=== PATIENT | female | born 1950 | race Caucasian/White ===

== ENCOUNTER 2018-05-23 00:38 | Outpatient (CLI) | payer BC, SELFPAY ==
[2018-05-23 10:37] LABS: ALT 32 U/L (12-78); AST 21 U/L (15-37); Albumin 3.9 g/dL (3.4-5.0); Alkaline Phosphatase 62 U/L (46-116); Anion Gap 10.2 mmol/L (3-11); BUN 11 mg/dL (7-18); Bilirubin, Total 1.2 mg/dL (0.2-1.0); CO2 27.8 mmol/L (21.0-32.0); CREATININE 0.96 mg/dL (0.55-1.02); Chloride 104 mmol/L (98-107); Cholesterol 176 mg/dL (50-200); Estimated GFR 58.15 (mL/min/1.73m2); Glucose 102 mg/dL (70-100); HDL Cholesterol 46 mg/dL (40-60); LDL CHOLESTEROL 113 mg/dL (<100); Potassium 4.4 mmol/L (3.5-5.1); Sodium 142 mmol/L (136-145); Triglyceride 100 mg/dL (30-150)
[2018-05-24 08:13] LABS: Hemoglobin A1C 7.1 % (4.5-6.2)
[2018-05-25 07:48] LABS: COMMENT (LAB VIEW ONLY) 150.63 mg/dL; Microalb ug/mg Crea 9.2 ug/mg Cr
== END 2018-05-23 00:58 ==
PROVIDERS: PCP Family Medicine; Visit Provider Family Medicine
DX: Z00.00 Encounter for general adult medical examination without abnormal findings (principal); E11.9 Type 2 diabetes mellitus without complications; E78.5 Hyperlipidemia, unspecified; I10 Essential (primary) hypertension
CPT/HCPCS: 80053; 80061; 83721; 82043; 82570; 83036

== ENCOUNTER 2018-10-26 09:07 | Outpatient (CLI) | payer BC, SELFPAY ==
--- NOTE | 2018-10-26 08:43 | DI.RAD_ITS ---
SYMPTOM/DIAGNOSIS: LT SHOULDER PAIN LEFT SHOULDER: There is mild spurring at the AC joint and undersurface of the acromion. The humeral head appears normally positioned. The glenohumeral joint space is well maintained. IMPRESSION: AC joint degenerative changes.
== END 2018-10-26 09:27 ==
PROVIDERS: PCP Family Medicine; Visit Provider Physician Assistant
DX: M25.512 Pain in left shoulder (principal); M19.012 Primary osteoarthritis, left shoulder
CPT/HCPCS: 73030

== ENCOUNTER 2018-11-13 01:14 | Outpatient (CLI) | payer BC, SELFPAY ==
--- NOTE | 2018-11-13 10:40 | DI.MRI_ITS ---
SYMPTOMS/DIAGNOSIS: PAIN S/P FALL 4 MONTHS AGO, DECREASED RANGE OF MOTION, ? ROTATOR CUFF TEAR MRI OF THE LEFT SHOULDER: Routine noncontrast examination was performed. There is a tear of the supraspinatus tendon, which appears near complete. The infraspinatus, teres minor and subscapularis tendons are intact. The muscles show normal signal and size. The biceps tendon has a normal appearance and location. There is blunting of the posterior inferior labrum, which may represent a small tear. The remainder of the labrum is grossly unremarkable. The articular cartilage is unremarkable. There are hypertrophic changes seen at the acromioclavicular joint. Degenerative changes are also seen at the greater tuberosity. No findings to suggest an occult fracture or avascular necrosis are identified. No focal fluid collection or soft tissue mass is seen. There is a small amount of fluid seen in the subacromial-subdeltoid bursa. IMPRESSION: 1. Tear of the supraspinatus tendon. The tear is not complete. No retraction is seen. 2. Question of a tear of the posterior labrum.
== END 2018-11-13 01:34 ==
PROVIDERS: PCP Family Medicine; Visit Provider Student in an Organized Health Care Education/Training Program
DX: M25.512 Pain in left shoulder (principal); M25.812 Other specified joint disorders, left shoulder; M75.102 Unspecified rotator cuff tear or rupture of left shoulder, not specified as traumatic
CPT/HCPCS: 73221

== ENCOUNTER 2018-11-24 11:38 | Day surgery (SDC) | payer BC, SELFPAY ==
[2018-11-24] VITALS (7 sets, daily range): BP systolic 101–155; BP diastolic 53–75; PULSE 53–62; RESP 16–24; TEMP 35.3–36.8; O2SAT 94–97
[2018-11-24] MEDS: Lactated Ringers 1,000 ML 80 ML IV ×2 (12:45→17:58)
[2018-11-24] MEDS: Bupivacaine LIPOSOME/PF 133 MG/10 ML VIAL IJ (13:58)
[2018-11-24] MEDS: Bupivacaine 0.5% Pres-Free 30 ML VIAL (13:58)
[2018-11-24] MEDS: ceFAZolin 2 GM/50 ML BAG IVPB (14:41)
--- NOTE | 2018-11-24 16:28 | W.PM.DSUDISC ---
Discharge Plan Disposition Patient Disposition: HOME Condition: Good Discharge Details Reason For Visit: (L) RTC TEAR, (L) ADHESIVE CAPSULITIS Attending Provider: Chuy Zaragoza Primary Care Provider: Yaniv Greenwood Home Meds and New Rx's Prescriptions: New acetaminophen 500 mg tablet 500 mg PO Q6H PRN (Reason: pain) Qty: 90 RF: 3 ibuprofen 600 mg tablet 600 mg PO TID PRNQty: 90 RF: 3 oxycodone 5 mg tablet 5 mg PO Q4H Qty: 12 RF: 0 Continued escitalopram oxalate 10 mg tablet 10 mg PO DAILY Qty: 30 RF: 11 pravastatin 40 mg tablet 40 mg PO DAILY Qty: 90 RF: 4 metformin 500 mg tablet 500 mg PO BID 0 Days Qty: 180 RF: 4 lorazepam 0.5 mg tablet 0.5 mg PO tid prn for anxiety 10 Days Qty: 30 RF: 0 lisinopril 20 mg tablet 20 mg PO DAILY 90 Days Qty: 90 RF: 3 Discontinued ibuprofen 800 mg Tablet 800 mg PO Q6H PRNRF: 0 acetaminophen 500 mg Capsule 1,000 mg PO Q4H PRNRF: 0 Discharge Instructions Additional Instructions: You may begin passive range of motion right away. You may start physical therapy within one week to begin passive and active assisted range ofmotion. Stand Alone Forms: Mila aguayo/RCR Referrals: Chuy Zaragoza MD [ [facility] STAFF PHYSICIAN] - Equipment/Supplies: Sling Activity:: Stay in sling except for hygiene and passive motion Remove Dressings/Wound Care:: 72 hours Shower/Bathe:: 72 hours Diet:: As Tolerated Discharge Orders Discharge Orders: Discharge Order (Routine); Ordered 11/24/18 Ordered By: Chuy Zaragoza DS: Diagnosis Discharge Diagnosis (1) Adhesive capsulitis of left shoulder: Status: Acute (2) Left rotator cuff tear: Status: Acute
[2018-11-24] MEDS: oxyCODONE 5 MG TAB PO (17:58)
--- NOTE | 2018-11-24 18:06 | NUR.NOTE ---
Nursing Note: Pt to [facility] floor at 1732 for recovery following OR with Dr. Zaragoza. VSS, pt very drowsy, c/o pain 5/10. Pt electing to remain on stretcher rather than transfer to bed, refusing gown change; pt wearing paper gown from OR. Pt medicated with oxycodone. at bedside. CMSTs good. RN will continue to monitor.
--- NOTE | 2018-11-26 07:36 | ROE_ITS ---
Date of service: 11/24/18 Time of Service: 17:36 Operative Note DATE OF PROCEDURE: 11/24/18 PRE-OP DIAGNOSIS: Left rotator cuff tear, left shoulder adhesive capsulitis POST-OP DIAGNOSIS: same PROCEDURE: Left shoulder arthroscopic rotator cuff repair, left shoulder arthroscopic capsular release SURGEON: Chuy Zaragoza MATCHING MACHINE OPERATOR: Orlando Goodman ANESTHESIA: GETA and regional ESTIMATED BLOOD LOSS: 0 PATHOLOGY: none sent COMPLICATIONS: None Patient was transported to: PACU Patient's condition: stable Indications: I have seen Priya in clinic for a painful shoulder. Pathology was confirmed based on MRI and exam findings. Nonoperative measures were exhausted but disability and pain persisted. I discussed shoulder arthroscopy and procedures. I reviewed the risks of the procedures to include, but not limited to, bleeding, infection, pain, stiffness, damage to nerves or vessels, recurrence, hardware failure, blood clot. Despite these risks, the patient elected to proceed. Findings: A diagnostic arthroscopy was performed with the following findings: - Glenohumeral Joint: No significant arthritic change. However, there was notable thickening and inflammatory change seen throughout the entirety of the glenohumeral joint lining. - Labrum: Some fraying of the anterior labrum and the superior labrum without notable displacement. - Cuff: Partial articular sided supraspinatus tearing involving approximately 10 mm of footprint - Biceps: Tearing of the biceps tendon at the level of the anchor - Subacromial: Dense inflammatory changes with the bursal side still intact but released for rotator cuff repair. No significant spurring Procedure Description: Priya was greeted in the preoperative holding area where the correct side was identified and marked. The consent was reviewed with the patient and signed. The history and physical was updated. All questions were answered. She was taken back to the PACU for administration of an intrascalene nerve block. She was then taken to the operating room. The patient was placed into the supine position on the operating room table. A general anesthetic was administered. She was then positioned in the beach chair position. All bony prominences were well padded. The head was placed in a foam head of product in a neutral position. Prophylactic antibiotics in the form of cefazolin were administered. The left arm/shoulder was then prepped with Chloraprep and draped in a standard fashion with stockinette and shoulder drape. A timeout to confirm correct identity, side and site, procedure, allergies, anesthesia, and medical concerns was performed. An assessment of motion was then performed. This demonstrated abduction of only about 70 degrees and forward flexion of 90 degrees with about 40 degrees of external rotation, passively. The arm was placed into a pneumatic kenney, SPIDER2. The shoulder arthroscopy was then performed. The glenohumeral joint was injected with 20 cc of normal saline with good flow back. A standard posterior portal was made and the joint was entered atraumatically with a blunt arthroscope. Once inside we had good visualization of the structures of the glenohumeral joint. An anterior portal was established with spinal needle localization. A 6.5 mm cannula was inserted. A probe was then used to perform a diagnostic arthroscopy. There is noted to be no significant cartilage damage of the glenoid humeral joint. There was significant synovitis and inflammatory change seen within the glenohumeral joint. The labrum was frayed anteriorly and superiorly. There were no loose bodies in the inferior pouch. The superior rotator cuff was torn over the articular side of the supraspinatus, the most anterior aspect. Approximately 10 or so millimeters was exposed. The remainder of the superior and posterior cuff was intact. The biceps tendon had fraying and tearing seen just at the anchor and lateral. The subscapularis was intact. I debrided the synovitis and inflammatory change within the shoulder using a shaver. Using electrocautery I performed a capsular release. I started superiorly over the labrum the tissue between the labrum and the superior rotator cuff. I then worked anteriorly. The entirety of the rotator interval between the superior rotator cuff and the superior portion of the subscapularis was resected into the conjoined tendon was visible in the muscle fibers of the subscapularis were visible. Working around the labrum I performed a capsular release to the inferior aspect of the glenoid. The scope was then placed in the anterior portal and the electrocautery device was placed posteriorly. This capsular release was then continued posteriorly from the superior labrum down around the posterior aspect of the shoulder with notable distraction of the capsule. Care was taken moving inferiorly and this was carefully touched with electrocautery making sure not to penetrate deep and paying attention to any shoulder motion to suggest nerve involvement. Capsule release was less aggressive at the most inferior portions. The arthroscope was then inserted into the subacromial space. The 6.5 mm cannula was placed lateral to the CA ligament. Given that there was no significant tearing of the rotator cuff I went ahead and release the CA ligament off the anterolateral corner of the acromion. A complete bursectomy is performed anteriorly, posteriorly, and laterally with electrocautery and shaver. This had excellent exposure of the rotator cuff. The bursal side rotator cuff was without any significant tearing that was appreciated. The area of corresponding articular sided tearing was identified by the soft nature of the rotator cuff. This is open more fully with a knife. The anterior aspect of the tuberosity footprint was identified. A single Mytec 4.5 mm anchor was inserted. 2 horizontal mattress sutures were then placed into the supraspinatus tendon. These were tied down in standard arthroscopic techniques with good reapproximation of the supraspinatus tendon down to the tuberosity. There is no significant anterolateral spurring. The scope equipment was removed from the shoulder. Excess fluid was evacuated. The portal sites were closed with 3-0 Monocryl. The wounds were dressed with Steri-Strips, 4 x 4's, ABDs, Medipore tape. A sling was applied. The patient tolerated the procedure well and was returned to the Same Day Surgery area in a stable condition suffering no known complication.
== END 2018-11-24 20:14 | disposition home or self-care (01) ==
LOC: SUR 16:29 → MS 18:01
PROVIDERS: PCP Family Medicine; Visit Provider Student in an Organized Health Care Education/Training Program
PROC: (CPT 29827; principal; 2018-11-24 13:15)
DX: M75.02 Adhesive capsulitis of left shoulder (principal); S46.012A Strain of muscle(s) and tendon(s) of the rotator cuff of left shoulder, initial encounter; S46.212A Strain of muscle, fascia and tendon of other parts of biceps, left arm, initial encounter; X58.XXXA Exposure to other specified factors, initial encounter; G89.18 Other acute postprocedural pain; M65.812 Other synovitis and tenosynovitis, left shoulder; I10 Essential (primary) hypertension; E11.9 Type 2 diabetes mellitus without complications
CPT/HCPCS: 29827; 29825; J0690; J1100; J1885; J2370; J2405; L3670

== ENCOUNTER 2019-05-24 01:21 | Outpatient (CLI) | payer BC, SELFPAY ==
[2019-05-24 12:08] LABS: Abs Immature Grans 0.03 k/cumm (0.0-0.09); Absolute Basophil Count 0.04 k/cumm (0.0-0.2); Absolute Eosinophil Count 0.18 k/cumm (0.0-0.7); Absolute Lymphocyte Count 1.68 k/cumm (1.2-3.4); Absolute Monocyte Count 0.49 k/cumm (0.11-0.7); Absolute Neutrophil Count 6.21 k/cumm (1.2-6.7); Basophils % 0.5; Eosinophils % 2.1; HCT 46.6 % (36.0-46.0); HGB 15.6 g/dL (12.0-15.5); Immature Grans % 0.3 %; Lymphocytes % 19.5; Mean Corp. HGB Concentration 33.5 g/dL (32.0-36.0); Mean Corpuscular Hemoglobin 29.6 pg (27.0-33.0); Mean Corpuscular Volume 88.4 fL (80-95); Monocytes % 5.7; Neutrophils % 71.9; Platelet Count 220 x1000/uL (130-400); RBC 5.27 m/cumm (4.00-5.20); RBC Distribution Width 14.1 % (11.7-14.6); White Blood Cell Count 8.63 k/cumm (4.4-10.8)
[2019-05-24 12:56] LABS: Hemoglobin A1C 7.6 % (3.8-5.6)
[2019-05-24 13:45] LABS: COMMENT (LAB VIEW ONLY) 123.21 mg/dL; Microalb ug/mg Crea 4.7 ug/mg Cr
[2019-05-24 14:02] LABS: ALT 53 U/L (14-59); AST 41 U/L (15-37); Albumin 4.2 g/dL (3.4-5.0); Alkaline Phosphatase 74 U/L (46-116); Anion Gap 11.1 mmol/L (3-11); BUN 13 mg/dL (7-18); Bilirubin, Total 1.3 mg/dL (0.2-1.0); CO2 25.9 mmol/L (21.0-32.0); Calcium 9.2 mg/dL (8.5-10.1); Calculated LDL 134 mg/dL; Chloride 104 mmol/L (98-107); Cholesterol 202 mg/dL (<200); Glucose 143 mg/dL (74-106); HDL Cholesterol 41 mg/dL (40-60); Potassium 4.5 mmol/L (3.5-5.1); Sodium 141 mmol/L (136-145); Total Protein 7.3 g/dL (6.4-8.2); Triglyceride 139 mg/dL (<150); Vitamin B12 391 pg/mL (193-986)
== END 2019-05-24 01:41 ==
PROVIDERS: PCP Family Medicine; Visit Provider Family Medicine
DX: Z00.00 Encounter for general adult medical examination without abnormal findings (principal); E11.9 Type 2 diabetes mellitus without complications; E78.5 Hyperlipidemia, unspecified; I10 Essential (primary) hypertension
CPT/HCPCS: 36415; 80053; 80061; 82043; 82570; 82607; 83036; 85025

== ENCOUNTER 2019-06-28 01:19 | Outpatient (CLI) | payer BC, SELFPAY ==
--- NOTE | 2019-06-28 15:30 | DI.MAMMO_ITS ---
EXAM: MG MAMMO SCREENING CLINICAL HISTORY: screening, Z12.31 TECHNIQUE: Mammograms were interpreted according to the usual protocol including computer analysis w [employer] CAD system, tomosynthesis and C-view imaging. COMPARISON: FINDINGS: The breasts are of moderate density with fairly symmetrical distribution of fibroglandular tissue. N o dominant mass or clumped microcalcification is identified in either breast. Current examination is compared with previous examinations including June 2017 and there has been no gross interval tai nge in appearance in comparison with previous studies. IMPRESSION: No specific evidence of malignancy at this time. Routine screening examinations are suggested at yea rly intervals due to the family history of breast carcinoma. Category 1, breast density category B
== END 2019-06-28 01:39 ==
PROVIDERS: PCP Family Medicine; Visit Provider Family Medicine
DX: Z12.31 Encounter for screening mammogram for malignant neoplasm of breast (principal)
CPT/HCPCS: 77063; 77067

== ENCOUNTER 2019-07-05 09:57 | Day surgery (SDC) | payer BC, SELFPAY ==
--- NOTE | 2019-07-05 06:59 | W.COLOREPORT ---
Date of service: 07/05/19 Time of Service: 11:42 Colonoscopy Report Date of procedure: 07/05/19 Pre-op diagnosis general: Colon Cancer Screening Post-op diagnosis procedure note: other (Polyps) Procedure: Colonoscopy with polypectomy Surgeon: Wendie Barajas Anesthesia proc note operative: other (General/ ASA 2/Tammy Bryant CRNA) Estimated blood loss (mL): 5 Pathology: other (ascending colon polyp, transverse colon polyp x2, rectal polyp) Complications: None Disposition: same day Indications: 69 y/o female with history of HTN and type 2 DM presents for colonoscopy screening pre-op. Her last screening was in 2006, which was unremarkable. She denies a family history of colon cancer. She denies any changes in bowel habits including bloody or black tarry stools, abdominal pain, diarrhea or constipation. She denies constitutional symptoms. Risks, benefits and complications have been reviewed. Complications include but are not limited to bleeding, pain, perforation, missed small lesion/polyp, sore throat, aspiration and adverse reaction to the medications. Questions were entertained and answered to their satisfaction and they wished to proceed. No guarantees were given or implied. Prep: Miralax/Dulcolax Procedure Start Time: 11:42 Procedure End Time: 12:08 Retraction Time: 18 minutes Findings: 4 small polyps. 3 sessile and 1 pedunculated Procedure Description: After informed consent was obtained the patient was taken to the procedure room and placed in a left decubitous position. Monitors were applied and a time out was done. The patients name, date of , procedure, allergies to medications and metal in their body was reviewed. The patient was then sedated. Once sedated and comfortable a rectal exam was done. External exam was normal. Internal exam revealed a normal sphincter tone and no palpable masses. The scope was then introduced and retro-flexed. No internal hemorrhoids, polyps or masses were identified on retro-flexion. The scope was then advanced to the cecum without difficulty. The TI and appendiceal orifice were identified. The prep was adequate. The scope was then slowly retracted over 18 minutes back into the rectum. Polyps were removed with cold forceps in the ascending colon, transverse colon x2 and rectum. The scope was removed and the patient was woken up and taken back to Same day surgery in stable condition. The patient tolerated the procedure well and there were no immediate complications. Follow up: The patient should follow up in 3-5 years unless they develop changes in bowel habits or other new gastrointestinal complaints.
--- NOTE | 2019-07-05 07:00 | W.PM.DSUDISC ---
Discharge Plan Disposition Patient Disposition: HOME Condition: Good Discharge Details Reason For Visit: Colon Cancer Screening Attending Provider: Wendie Barajas Primary Care Provider: Yaniv Greenwood Home Meds and New Rx's Prescriptions: Continued escitalopram oxalate 10 mg tablet 10 mg PO DAILY Qty: 30 RF: 11 lisinopril 20 mg tablet 20 mg PO DAILY 90 Days Qty: 90 RF: 3 metformin 500 mg tablet 1,000 mg PO BID 90 Days Qty: 360 RF: 3 pravastatin 40 mg tablet 40 mg PO DAILY Qty: 90 RF: 3 multivitamin Capsule 1 cap PO DAILY RF: 0 Discontinued polyethylene glycol 3350 17 gram/dose powder 238 g PO ONCE Qty: 238 RF: 0 bisacodyl [Dulcolax (bisacodyl)] 5 mg tablet,delayed release (DR/EC) 5 mg PO ONCE Qty: 4 RF: 0 Discharge Instructions Instructions: Colorectal Polyps (DC) Additional Instructions: Findings: 4 polyps Follow up: 3-5 years Please call if you develop: fevers >101.5 Nausea or Vomiting Abdominal pain that is not transient DAY SURGERY UNIT POST ENDOSCOPY INSTRUCTIONS 1. Because there will be medication in your system for the next 24 hours, you may feel a little sleepy. Your coordination will be affected. Therefore: a. Do not drive or operate dangerous equipment for 24 hours. b. Do not drink alcohol beverages for 24 hours (not even beer). c. Plan to go home and rest for the day. 2. Generally there are no restrictions on your activity after a day or so has gone by, but you may feel a bit fatigued for a few days. 3 After you arrive home you may have a light meal and return to a normal diet as you can tolerate it without feeling sick to your stomach. 4. After surgery, you may feel pain or discomfort. This should be only transient, but if it persists please contact your doctor. 5. If there are any questions regarding the findings of your procedure, please feel free to contact your doctor. 6. If you are unable to contact your doctor with a problem, contact the hospital at [phone]. 7. Continue all your regular medications unless directed otherwise. I understand the above instructions and have no questions. Signature of Patient or Responsible Adult Escort Date/Time Name of Responsible Adult Escort Signature of Nurse Date/Time Activity:: Activity as Tolerated Diet:: As Tolerated Discharge Orders Discharge Orders: Discharge Order (Routine); Ordered 07/05/19 Ordered By: Wendie Barajas DS: Diagnosis Discharge Diagnosis (1) Colorectal polyps: Status: Acute
[2019-07-05 10:15] VITALS: BP 151/91; PULSE 63; RESP 16; TEMP 36.5; O2SAT 97
[2019-07-05] MEDS: Lactated Ringers 1,000 ML 80 ML IV (10:40)
--- NOTE | 2019-07-05 11:54 | BOWEL_PTH ---
PATIENT: Yesenia Salazar LOC: [facility] U#:[id number] AGE/SX: 69/F ROOM: RE07/05/[address]: Wendie Barajas MD : [id number] BED: DIS: 07/05/2019 SPEC #: [id number] RECD: 07/05/19 12:56 STATUS: MARLO REQ #: [id number] SANGEETA: 07/05/19 11:[address]: Wendie Barajas DEPT: Surgical Specimen RECD BY: Pari Pierce ENTERED: 07/05/19 12:57 SP TYPE: Bowel OTHR DR: Yaniv Greenwood MD Tissues: 1 - BIOPSY BOWEL 2 - BIOPSY BOWEL 3 - BIOPSY BOWEL Procedures: GROSS AND MICRO LEVEL 4 Comments: [id number]
[2019-07-05 12:50] VITALS: BP 121/64; PULSE 50; RESP 16; TEMP 36.6; O2SAT 97
[2019-07-05 13:17] VITALS: BP 132/68; PULSE 52; RESP 16; O2SAT 98
== END 2019-07-05 13:33 | disposition home or self-care (01) ==
LOC: SUR 09:58
PROVIDERS: PCP Family Medicine; Visit Provider Surgery
PROC: 0DJD8ZZ Inspection of Lower Intestinal Tract, Via Natural or Artificial Opening Endoscopic (ICD-10-PCS; CPT 45378; principal; 2019-07-05 11:30)
DX: Z12.11 Encounter for screening for malignant neoplasm of colon (principal); D12.2 Benign neoplasm of ascending colon; D12.3 Benign neoplasm of transverse colon; D12.8 Benign neoplasm of rectum; I10 Essential (primary) hypertension; E11.9 Type 2 diabetes mellitus without complications; Z79.84 Long term (current) use of oral hypoglycemic drugs
CPT/HCPCS: 45380; 88305

== ENCOUNTER 2020-05-17 16:15 | Outpatient (REF) | payer BC, SELFPAY ==
[2020-05-17 15:34] LABS: COMMENT (LAB VIEW ONLY) 45.47 mg/dL; Microalb ug/mg Crea 5.3 ug/mg Cr
== END 2020-05-17 16:35 ==
LOC: LBN 16:15
PROVIDERS: PCP Family Medicine; Visit Provider Nurse Practitioner Family
DX: E11.9 Type 2 diabetes mellitus without complications (principal)
CPT/HCPCS: 82043; 82570

== ENCOUNTER 2020-07-03 02:46 | Outpatient (CLI) | payer BC, SELFPAY ==
--- NOTE | 2020-07-03 07:30 | DI.MAMMO_ITS ---
EXAM: MG MAMMO SCREENING CLINICAL HISTORY: screening,Z12.39 TECHNIQUE: Bilateral full field digital CC and MLO mammographic images were obtained with 3D tomosyn thesis and utilizing computer aided detection (CAD). COMPARISON: Available for comparison. FINDINGS: Masses/Architectural Distortion: None seen. Stable lymph nodes are seen in the axilla. There is a st able nodule in the upper outer quadrant of the left breast. Microcalcifications: No suspicious pleomorphic-type are seen. Skin Thickening/Nipple Retraction: None. IMPRESSION: 1. No significant interval change with no specific features of malignancy noted. 2. Unless there is more urgent need, screening mammography is recommended, as per [employer] [employer] guidelines. BI-RADS Category 1 - Negative Breast Density - Category B - Scattered areas of fibroglandular density Breast density category C or D implies that the patient has dense breast tissue. Dense breast tissue is very common and is not abnormal but dense breast tissue can make it harder to find cancer on a ma mmogram. Also, dense breast tissue may increase their breast cancer risk. This information about the result of the mammogram report was provided to the patient to raise their awareness. Use this report when you speak with the patient about their risks for breast cancer, which includes their family hist ory. At that time, you may recommend for more screening tests (Ultrasound or MRI) as they might be us eful based on their risk. A negative radiographic report should not delay biopsy if a dominant or clinically suspicious mass is present. Up to ten percent of cancers are not identified on mammography. A negative report may reinforce clinical impression. Adenosis and dense breasts may obscure an underlying neoplasm. False positive reports average 6 to 10%. Patient will receive a letter notifying them of these results.
[2020-07-03 10:19] LABS: COMMENT (LAB VIEW ONLY) 129.59 mg/dL; Microalb ug/mg Crea 1.9 ug/mg Cr
[2020-07-03 10:46] LABS: Anion Gap 4.6 mmol/L (3-11); BUN 15 mg/dL (7-18); CO2 28.4 mmol/L (21.0-32.0); CREATININE 0.8 mg/dL (0.55-1.02); Calcium 9.1 mg/dL (8.5-10.1); Calculated LDL 94 mg/dL (<100); Chloride 106 mmol/L (98-107); Cholesterol 164 mg/dL (<200); Glucose 196 mg/dL (74-106); HDL Cholesterol 47 mg/dL (40-60); Potassium 4.7 mmol/L (3.5-5.1); Sodium 139 mmol/L (136-145); Triglyceride 118 mg/dL (<150)
== END 2020-07-03 02:47 | disposition home or self-care (01) ==
LOC: LBO 02:46
PROVIDERS: Nurse Practitioner Family; PCP Family Medicine; Visit Provider Family Medicine
DX: Z00.00 Encounter for general adult medical examination without abnormal findings (principal); Z12.31 Encounter for screening mammogram for malignant neoplasm of breast; E11.9 Type 2 diabetes mellitus without complications; I10 Essential (primary) hypertension; E78.5 Hyperlipidemia, unspecified
CPT/HCPCS: 36415; 77063; 77067; 80048; 80061; 82043; 82570

== ENCOUNTER 2021-05-01 02:51 | Outpatient (CLI) | payer BC, SELFPAY ==
[2021-05-01 10:06] LABS: ALT 34 U/L (14-59); AST 17 U/L (15-37); Albumin 3.9 g/dL (3.4-5.0); Alkaline Phosphatase 75 U/L (46-116); Anion Gap 8.8 mmol/L (3-11); BUN 15 mg/dL (7-18); Bilirubin, Total 1.2 mg/dL (0.2-1.0); CO2 29.2 mmol/L (21.0-32.0); CREATININE 0.8 mg/dL (0.55-1.02); Calcium 9.5 mg/dL (8.5-10.1); Chloride 105 mmol/L (98-107); Glucose 201 mg/dL (74-106); Potassium 4.8 mmol/L (3.5-5.1); Sodium 143 mmol/L (136-145); Total Protein 7.1 g/dL (6.4-8.2)
== END 2021-05-01 02:52 | disposition home or self-care (01) ==
LOC: LBO 02:52
PROVIDERS: PCP Nurse Practitioner Family
DX: E11.9 Type 2 diabetes mellitus without complications (principal); F41.8 Other specified anxiety disorders; I10 Essential (primary) hypertension
CPT/HCPCS: 36415; 80053

== ENCOUNTER 2022-06-10 03:04 | Outpatient (CLI) | payer BC, SELFPAY ==
[2022-06-10 12:38] LABS: CREATININE 0.9 mg/dL (0.55-1.02); Estimated GFR 68.35 (mL/min/1.73m2); Potassium 4.3 mmol/L (3.5-5.1)
== END 2022-06-10 03:05 | disposition home or self-care (01) ==
LOC: LOS 03:05
PROVIDERS: PCP Nurse Practitioner Family; Visit Provider Nurse Practitioner Family
DX: I10 Essential (primary) hypertension (principal)
CPT/HCPCS: 36415; 82565; 84132

== ENCOUNTER 2022-06-19 00:46 | Outpatient (CLI) | payer BC, SELFPAY ==
--- NOTE | 2022-06-19 06:30 | DI.MAMMO_ITS ---
Exam(s) MAMMO SCREENING EXAM: MAMMO SCREENING CLINICAL HISTORY: screening,Z12.39 TECHNIQUE: Mammograms were interpreted according to the usual protocol including computer analysis w [employer] CAD system, tomosynthesis and C-view imaging. COMPARISON: 2012 through 2020 FINDINGS: The breasts are composed of mainly fatty density , Breast Density category A. No suspicious masses or suspicious microcalcifications are seen. No skin thickening or abnormal axillary lymph nodes are seen. There has been no significant change from prior exams. IMPRESSION: BI-RADS Category 1, Negative mammogram Yearly screening mammography is recommended. Breast Density - Category A, fatty density. A negative radiographic report should not delay biopsy if a dominant or clinically suspicious mass is present. Up to ten percent of cancers are not identified on mammography. A negative report may reinforce clinical impression. Adenosis and dense breasts may obscure an underlying neoplasm. False positive reports average 6 to 10%. Patient will receive a letter notifying them of these results.
== END 2022-06-19 01:06 ==
PROVIDERS: PCP Nurse Practitioner Family; Visit Provider Nurse Practitioner Family
DX: Z12.31 Encounter for screening mammogram for malignant neoplasm of breast (principal)
CPT/HCPCS: 77063; 77067

== ENCOUNTER 2023-06-10 04:50 | Outpatient (CLI) | payer BC, SELFPAY ==
[2023-06-10 12:37] LABS: CREATININE 0.9 mg/dL (0.55-1.02); Calculated LDL 83 mg/dL (<100); Cholesterol 152 mg/dL (<200); Estimated GFR 67.92 (mL/min/1.73m2); HDL Cholesterol 52 mg/dL (40-60); Triglyceride 87 mg/dL (<150)
== END 2023-06-10 04:51 | disposition home or self-care (01) ==
LOC: LOS 04:50
PROVIDERS: PCP Nurse Practitioner Family; Visit Provider Nurse Practitioner Family
DX: I10 Essential (primary) hypertension (principal); Z13.6 Encounter for screening for cardiovascular disorders
CPT/HCPCS: 36415; 80061; 82565; 84132

== ENCOUNTER 2023-12-13 07:19 | Emergency (ER) | payer BC, SELFPAY ==
[2023-12-13 07:22] VITALS: BP 138/61; PULSE 67; RESP 18; TEMP 36.5; O2SAT 100
--- NOTE | 2023-12-13 07:48 | W.ED.GENAD ---
Discharge Plan Disposition Patient Disposition: Home Condition: Stable Discharge Details Clinical Impression: Myalgia, Arthralgia, Tick bite Primary Care Provider: Dao Dejesus ED Provider: Edgardo Figueroa Home Meds and New Rx's Prescriptions: New doxycycline hyclate 100 mg capsule 100 mg PO BID 28 Days Qty: 56 0RF No Action multivitamin Capsule 1 cap PO DAILY atorvastatin 40 mg tablet 40 mg PO DAILY Qty: 90 3RF escitalopram oxalate 10 mg tablet 10 mg PO DAILY Qty: 90 3RF metformin 500 mg tablet extended release 24 hr 1,000 mg PO BID Qty: 360 3RF Discharge Instructions Instructions: Lyme Disease Test Additional Instructions: Please start the doxycycline twice daily for 28 days. If your Lyme testing is negative, you can likely stop this medication. I would follow-up with your primary care for further evaluation You can take Tylenol 1000 mg every 6 hours as needed for pain. You can also take ibuprofen 600 mg every 6 hours as needed for pain. Both of these medications will likely help your symptoms. Please increase water. Return to the emergency department with fever headache rash or other concerning symptoms. HPI General Date/Time Provider Initiated Documentation: 12/13/23 07:34. Limitations to Documentation: no limitations. Information obtained by: patient. HPI Narrative: 73-year-old female with past medical history of hypertension and diabetes presents for evaluation of bodyaches. She reports that she has been having progressively worsening body aches and difficulty with walking over the last 2 weeks. She states that her difficulty is secondary to pain. She states that normally she is very active and walks 10,000 steps per day. She reports that she started having some neck stiffness when looking to the left and right. Denies any headache or fever. She states that this is progressed down her back and she has some back pain particularly around her scapula. She states that it now goes down the back of her legs and into her heels. She states while walking this morning she had significant discomfort when placing weight on her heels. She reports that a few weeks ago she did have a tick noted on her right upper extremity. She states that she never had a bull's-eye rash but had some localized redness and itching. She does not know how long the tick was attached. She has not tried any Motrin or Tylenol during this time. She reports some mild decrease in appetite, but denies any nausea or vomiting. Denies any diarrhea. Denies any weakness, numbness or visual change. Related Data Home Medications ?Medication ?Instructions ?Recorded ?Confirmed multivitamin 1 cap PO DAILY 06/18/19 12/13/23 atorvastatin 40 mg tablet 40 mg PO DAILY #90 tabs 06/06/23 12/13/23 escitalopram oxalate 10 mg tablet 10 mg PO DAILY #90 tabs 06/06/23 12/13/23 metformin 500 mg tablet,extended 1,000 mg (2 x 500 mg) PO BID #360 06/06/23 12/13/23 release 24 hr tabs doxycycline hyclate 100 mg capsule 100 mg PO BID 28 days #56 caps 12/13/23 Previous Rx's ?Medication ?Instructions ?Recorded atorvastatin 40 mg tablet 40 mg PO DAILY #90 tabs 06/06/23 escitalopram oxalate 10 mg tablet 10 mg PO DAILY #90 tabs 06/06/23 metformin 500 mg tablet,extended 1,000 mg (2 x 500 mg) PO BID #360 06/06/23 release 24 hr tabs doxycycline hyclate 100 mg capsule 100 mg PO BID 28 days #56 caps 12/13/23 Allergies Allergy/AdvReac Type Severity Reaction Status Date / Time Sulfa (Sulfonamide Allergy Severe Swelling/Ed Unverified 12/13/23 07:25 Antibiotics) aviva General Stated Complaint: GenMedical BENJY: 3 Exam Narrative Exam Narrative: Review of Systems: All systems reviewed & are unremarkable except as noted in HPI and below Well-developed, no acute distress Afebrile NCAT PERRL, normal conjunctiva RRR, no murmur Unlabored respiratory effort, clear bilaterally Nondistended abdomen , soft nontender Extremities w/o deformity, no cyanosis, no edema No focal joint tenderness or swelling appreciated No rashes or lesions. no focal neurologic deficits, normal sensation and strength throughout She has some trapezius spasm bilaterally of the neck, but no midline neck tenderness, she has full range of motion of the neck without any meningeal signs Appropriate mood and affect Course Vital Signs Vital signs: Vital Signs Temperature 36.5 C 12/13/23 07:22 Pulse 67 12/13/23 07:22 Respiratory Rate 18 12/13/23 07:22 Blood Pressure 138/61 12/13/23 07:22 Pulse Oximetry 100 12/13/23 07:22 Temperature 36.5 C 12/13/23 07:22 Pulse 67 12/13/23 07:22 Respiratory Rate 18 12/13/23 07:22 Blood Pressure 138/61 12/13/23 07:22 Pulse Oximetry 100 12/13/23 07:22 Pain Level 7 12/13/23 07:22 Medical Decision Making Emergent evaluation of bodyaches. Initial differential includes viral illness, tickborne illness, would also consider rhabdomyolysis given that she is on a statin. She has a very benign and reassuring examination with no focal point of abnormality appreciated. Given recent reported tick bite, would consider that these arthralgias could be related to lyme. will send testing and did offer patient treatment in interim. We do have increased covid in the community, and will test for this as well. 0845 Patient lab work reviewed. No leukocytosis or anemia. Electrolytes without derangement and there is normal renal function. Her CPK is not elevated so I doubt any rhabdo. She has been on the atorvastatin for a long period of time, so I doubt her myalgias are related to that medication. Tick panel is pending. Given her known tick bite and the symptoms, do recommend treating with doxycycline for 28 days pending testing the patient may stop it but I do recommend that she primary care doctor prior to doing so. Recommended [id number] pain medications and anti-inflammatories. Strict return precautions were discussed. Discharged in good condition. Quality:SDOH Health Related Social Needs: No Data to Display PFSH All Active Problems (Updated 12/13/23 @ 08:36 by Edgardo Figueroa MD) Tick bite (Acute) Arthralgia (Acute) Myalgia (Acute) Geographic tongue (Acute) Diarrhea (Acute) Skin lesion (Acute) Hepatic steatosis (Acute) Anxiety with depression (Acute) Hyperlipidemia (Acute 01/11/13) Hypertension (Acute 05/06/17) Colorectal polyps (Acute) Diabetes mellitus (Chronic 01/14/13) Medical History Ganglion cyst Left rotator cuff tear Arthroscopic Repair on 11/24/18 Adhesive capsulitis of left shoulder Injection: 10/26/2018 Surgery: 11/24/2018 Papanicolaou smear of vagina with atypical squamous cells of undetermined significance (ASC-US) (04/03/98) Uterine leiomyoma Hyperbilirubinemia (01/14/13) Increased body mass index Other viral warts (05/06/17) Solar lentigo (05/20/17) Surgical History Hx of shoulder surgery left shoulder arthroscopic surgery. Status post left rotator cuff repair (11/24/18) Arthroscopic rotator cuff repair and capsular release Hx of colonoscopy 2007- normal History of bladder repair surgery Rectocele, Paravaginal repair Vaginal hysterectomy Cervical Conization/LEEP (~1999) Family History Mother , AGE 76 Diabetes Father , AGE 57 Heart disease Myocardial infarction Brother No problems noted. Son Hypertension Daughter No problems noted. Daughter No problems noted. 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 Pets and animals: Yes Pets and animals: dog(s) Sexually active: No Do you think of yourself as: straight/heterosexual Current gender identity: female What is your relationship status?: How often do you talk on the phone with friends or family?: three or more times per week How often do you get together with friends or relatives?: once per week How often do you attend pentecostal or rastafarian services?: decline to answer Do you belong to any clubs or organized social groups?: no Panel score (0-1 are the most socially isolated patients): 1 What type of physical activity do you participate in: walking Duration: 30-45 minutes/day Frequency: 5-6 times per week Agatha/Yazidi: No preference Special agatha needs: No Seatbelt use: always Helmet use: No Drive intox or ride w/intox 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
[2023-12-13] MEDS: Acetaminophen 500 MG TAB 1000 MG PO (08:00)
[2023-12-13] MEDS: Ibuprofen 600 MG TAB PO (08:00)
[2023-12-13 08:11] LABS: Abs Immature Grans 0.04 10^3/uL (0.0-0.06); Absolute Basophil Count 0.04 10^3/uL (0.0-0.2); Absolute Eosinophil Count 0.13 10^3/uL (0.0-0.7); Absolute Lymphocyte Count 1.11 10^3/uL (1.2-3.4); Absolute Monocyte Count 0.73 10^3/uL (0.1-0.8); Absolute Neutrophil Count 7.66 10^3/uL (1.2-6.7); Basophils % 0.4 %; Eosinophils % 1.3 %; HCT 37.8 % (36.0-46.0); HGB 12.5 g/dL (11.2-15.7); Immature Grans % 0.4 %; Lymphocytes % 11.4 %; MCH 29.1 pg (27.0-33.0); MCHC 33.1 % (32.0-36.0); MCV 88 fL (80-95); MPV 10.1 fL (8.0-11.0); Monocytes % 7.5 %; Platelet Count 248 10^3/uL (130-400); RDW 13.2 % (11.7-14.6); RDW-SD 42.5 fL; WBC 9.71 10^3/uL (4.4-10.8)
[2023-12-13 08:26] LABS: Anion Gap 10.5 mmol/L (3-11); BUN 11 mg/dL (7-18); CO2 26.5 mmol/L (21.0-32.0); CREATININE 0.8 mg/dL (0.55-1.02); Calcium 8.8 mg/dL (8.5-10.1); Chloride 102 mmol/L (98-107); Creatine Kinase 25 U/L (26-192); Estimated GFR 78.24 (mL/min/1.73m2); Glucose 127 mg/dL (74-106); Potassium 3.6 mmol/L (3.5-5.1); Sodium 139 mmol/L (136-145)
[2023-12-13 09:00] VITALS: BP 133/63; PULSE 63; O2SAT 98
[2023-12-15 13:08] LABS: Lyme Ab w Rflx to Lyme Confirm Negative (Negative)
[2023-12-16 22:50] LABS: Anaplasma phagocytophilum Negative (Negative); B. miyamotoi PCR Negative (Negative); Babesia divergens/MO-1 Negative (Negative); Babesia duncani Negative (Negative); Babesia microti Negative (Negative); Ehrlichia chaffeensis Negative (Negative); Ehrlichia ewingii/canis Negative (Negative); Ehrlichia muris eauclairensis Negative (Negative)
== END 2023-12-13 09:00 | disposition home or self-care (01) ==
PROVIDERS: Emergency Provider Emergency Medicine; PCP Nurse Practitioner Family
DX: M79.10 Myalgia, unspecified site (principal); M25.50 Pain in unspecified joint; W57.XXXA Bitten or stung by nonvenomous insect and other nonvenomous arthropods, initial encounter
CPT/HCPCS: 36415; 80048; 82550; 87798; 99283; 85025; 86618

== ENCOUNTER 2024-06-09 10:41 | Outpatient (CLI) | payer BC, SELFPAY ==
[2024-06-09 11:12] LABS: BUN 14 mg/dL (7-18); CREATININE 0.9 mg/dL (0.55-1.02); Calcium 9.9 mg/dL (8.5-10.1); Calculated LDL 125 mg/dL (<100); Chloride 103 mmol/L (98-107); Cholesterol 207 mg/dL (<200); Glucose 109 mg/dL (74-106); HDL Cholesterol 58 mg/dL (40-60); Sodium 140 mmol/L (136-145); Triglyceride 122 mg/dL (<150)
== END 2024-06-09 10:42 | disposition home or self-care (01) ==
LOC: LBO 10:42
PROVIDERS: PCP Nurse Practitioner Family; Visit Provider Nurse Practitioner Family
DX: Z13.1 Encounter for screening for diabetes mellitus (principal); Z13.6 Encounter for screening for cardiovascular disorders
CPT/HCPCS: 36415; 80048; 80061

== ENCOUNTER 2024-07-14 03:36 | Outpatient (CLI) | payer BC, SELFPAY ==
--- NOTE | 2024-07-14 08:58 | DI.MAMMO_ITS ---
Exam(s) MAMMO SCREENING EXAM: MAMMO SCREENING CLINICAL HISTORY: screening,Z12.39 TECHNIQUE: Bilateral full field digital CC and MLO mammographic images were obtained with 3D tomosyn thesis and utilizing computer aided detection (CAD). COMPARISON: Available for comparison. FINDINGS: Masses/Architectural Distortion: There are stable intraparenchymal nodules in the left breast. No ne w nodules. There are no suspicious areas of architectural distortion. Microcalcifications: No suspicious pleomorphic-type are seen. Skin Thickening/Nipple Retraction: None. IMPRESSION: 1. No significant interval change with no specific features of malignancy noted. 2. Unless there is more urgent need, screening mammography is recommended, as per [place] [employer] guidelines. BI-RADS Category 2 - Benign Findings Breast Density - Category B - Scattered areas of fibroglandular density Breast density category C or D implies that the patient has dense breast tissue. Dense breast tissue is very common and is not abnormal but dense breast tissue can make it harder to find cancer on a ma mmogram. Also, dense breast tissue may increase their breast cancer risk. This information about the result of the mammogram report was provided to the patient to raise their awareness. Use this report when you speak with the patient about their risks for breast cancer, which includes their family hist ory. At that time, you may recommend for more screening tests (Ultrasound or MRI) as they might be us eful based on their risk. A negative radiographic report should not delay biopsy if a dominant or clinically suspicious mass is present. Up to ten percent of cancers are not identified on mammography. A negative report may reinforce clinical impression. Adenosis and dense breasts may obscure an underlying neoplasm. False positive reports average 6 to 10%. Patient will receive a letter notifying them of these results.
== END 2024-07-14 03:56 ==
LOC: DI 03:36
PROVIDERS: PCP Nurse Practitioner Family; Visit Provider Nurse Practitioner Family
DX: Z12.31 Encounter for screening mammogram for malignant neoplasm of breast (principal); R92.323 Mammographic fibroglandular density, bilateral breasts; D24.2 Benign neoplasm of left breast
CPT/HCPCS: 77063; 77067